=== PATIENT | female | born 1955 | race Caucasian/White ===

== ENCOUNTER → 2016-09-29 | Outpatient (CLI) | payer BC ==
[~2016-09-29] MED LIST: CRANBERRY; MULT1TAB59 PO; OMEG1CAP97 PO; PANT40TA3 PO
== END | disposition home or self-care (01) ==
LOC: LAB 06:26 → EEVIPCON 06:26
PROVIDERS: ATTEND Urology
DX: N39.0 Urinary tract infection, site not specified (principal)
CPT/HCPCS: 87086

== ENCOUNTER 2016-12-01 14:14 | Day surgery (SDC) | payer BC ==
[~2016-12-01] VITALS: Ht 170.2 cm; Wt 76.2 kg
[2016-12-01 14:56] VITALS: Ht 170.2 cm; Wt 76.2 kg
[2016-12-01 15:33] VITALS: BP 129/81; PULSE 73; RESP 16
[2016-12-01] MEDS ORDERED: FENTAnyl 50 MCG/ML VIAL ONE (15:48)
[2016-12-01] MEDS ORDERED: LIDOCAINE 2% (SDV) 5 ML INJ ONE (15:48)
[2016-12-01] MEDS ORDERED: PROPOFOL 20 ML ONE (15:48)
[2016-12-01 17:00] VITALS: BP 120/74; RESP 20
--- NOTE | 2016-12-29 04:33 | GILP ---
DATE OF PROCEDURE: PROCEDURES PERFORMED: 1. Esophagogastroduodenoscopy and biopsy. 2. Colonoscopy and biopsy. SURGEON: Skinny Winter MD. PREOPERATIVE DIAGNOSES: 1. Abdominal pain. 2. Change in bowel habits. POSTOPERATIVE DIAGNOSES: 1. Gastroesophageal reflux disease. 2. Gastritis. 3. Gastric mucosal biopsies were taken for Helicobacter pylori test. 4. Colonoscopy all the way to the cecum. 5. Two small polyps were removed using the biopsy forceps. 6. Internal hemorrhoids. INDICATION FOR PROCEDURE: Mrs. Cassie Rodriges is a 61-year-old female patient who had upper abdominal pain not responding to therapy. The patient also noticed a change in the bowel habits. She has a family history of colon cancer. The patient was scheduled for endoscopy and colonoscopy for further evaluation. The procedures and possible complications were well explained to the patient. She understood and consented to the procedure. DESCRIPTION OF PROCEDURE: Under the influence of anesthesia the gastroscope was carefully introduced into the esophagus and under direct vision it was advanced in the stomach into the pylorus into the duodenal bulb and descending duodenum. Findings esophagus, the patient was noted to have gastroesophageal reflux disease. She also had gastritis. Gastric mucosal biopsies were taken for Helicobacter pylori test. Duodenum was normal. The colonoscope was carefully introduced in the rectum and under direct vision it was advanced all the way to the cecum. Findings, the patient had 2 small colon polyps and they were removed using the biopsy forceps. The patient was noted to have internal hemorrhoids. She tolerated the procedures very well. There was no complications from the procedures. At the end of procedures she was awake with stable vital signs and she was discharged home in the care of her family. IMPRESSION: 1. Gastroesophageal reflux disease. 2. Gastritis. 3. Gastric mucosal biopsies were taken for Helicobacter pylori test. Colonoscopy all the way to the cecum. Two small colon polyps were removed using the biopsy forceps. Internal hemorrhoids. PLAN: 1. Protonix 40 mg p.o. q.a.m. 2. Zantac 300 mg p.o. at bedtime. 3. Await histopathology reports. 4. Next screening colonoscopy in 5 years. Dictated By: MD KELLY Thacker/rojas/bernadette /Document#: [id number] CC: Skinny Winter MD;*[facility]*
== END 2016-12-01 16:48 | disposition home or self-care (01) ==
LOC: GIL 14:14
PROVIDERS: ATTEND Internal Medicine Gastroenterology
DX: R19.4 Change in bowel habit (principal); K21.9 Gastro-esophageal reflux disease without esophagitis; K29.70 Gastritis, unspecified, without bleeding; K63.5 Polyp of colon; K64.8 Other hemorrhoids
CPT/HCPCS: 43239; 45380; J3010

== ENCOUNTER → 2016-12-09 | Outpatient (CLI) | payer BC ==
[~2016-12-09] MED LIST changes: -CRANBERRY
--- NOTE | 2016-12-09 16:26 | RADRPT ---
PROCEDURE: US Abdomen (right upper quadrant). CLINICAL INDICATION: Elevated liver enzymes. TECHNIQUE: Multiple real-time longitudinal and transverse images of the right upper quadrant of th e abdomen were acquired utilizing a curved array transducer. Images were reviewed on a high-resoluti on PACS workstation. COMPARISON: CT scan of the abdomen and pelvis dated 04/25/2014. FINDINGS: The liver is normal in size and normal in echogenicity. There is no focal hepatic lesion. Color Doppler and pulsed Doppler sonography demonstrate normal a ntegrade flow in the portal vein. The gallbladder is surgically absent. The bile ducts are normal with the common bile duct measuring 3.5 mm in diameter. The visualized portions of the pancreas are unremarkable with obscuration of the tail of the pancrea s. No free fluid is present. The right kidney measures 11.6 cm. There is normal echogenicity of the right kidney. There is no perinephric fluid collection. No hydronephrosis, mass, or calculus is seen. IMPRESSION: 1. Status post cholecystectomy. 2. Otherwise normal right upper quadrant abdomen ultrasound. RPTAT: QQ .Devin Rao MD, Date Time Electronically viewed and signed by .Devin Rao MD, MD on 12/09/2016 16:25 .R/
== END | disposition home or self-care (01) ==
LOC: U/S 09:43
PROVIDERS: ATTEND Internal Medicine Gastroenterology
DX: R74.8 Abnormal levels of other serum enzymes (principal)
CPT/HCPCS: 76705

== ENCOUNTER → 2017-03-11 | Outpatient (CLI) | payer BC | END | disposition home or self-care (01) | LOC: LAB 18:47 | PROVIDERS: ATTEND Internal Medicine | DX: N39.0 Urinary tract infection, site not specified (principal) | CPT/HCPCS: 87086 ==

== ENCOUNTER → 2017-05-20 | Outpatient (CLI) | payer BC ==
[2017-05-20 18:51] LABS: ADD UMIC YES; UR ASCORBIC ACID NEGATIVE (NEGATIVE); UR BACTERIA FEW /HPF (NONE SEEN); UR BILIRUBIN (Dip) NEGATIVE (NEGATIVE); UR BLOOD (Dip) NEGATIVE (NEGATIVE); UR CLARITY CLEAR (CLEAR); UR COLOR YELLOW (YELLOW); UR GLUCOSE (Dip) NEGATIVE (NEGATIVE); UR KETONES (Dip) NEGATIVE (NEGATIVE); UR LEUKOCYTE ESTERASE (Dip) TRACE Leu/ul (NEGATIVE); UR NITRITE (Dip) POSITIVE (NEGATIVE); UR RBC 1 /HPF (0-5); UR SPECIFIC GRAVITY (Dip) 1.009 (1.003-1.030); UR TOTAL PROTEIN (Dip) NEGATIVE (NEGATIVE); UR UROBILINOGEN (Dip) NEGATIVE (NEGATIVE)
[2017-05-20 19:05] LABS: ALBUMIN 4.4 g/dl (3.3-4.9); ALBUMIN/GLOBULIN RATIO 1.46; BILIRUBIN,INDIRECT 0.4 mg/dl (0-1.1); BILIRUBIN,TOTAL 0.4 mg/dl (0.2-1.3); CALCIUM 9.4 mg/dl (8.4-10.2); CREATININE 0.9 mg/dl (0.44-1.00); POTASSIUM 3.9 mmol/L (3.5-5.1); TOTAL PROTEIN 7.4 g/dl (6.1-8.1)
== END | disposition home or self-care (01) ==
LOC: LAB 18:27
PROVIDERS: ATTEND Urology
DX: N39.0 Urinary tract infection, site not specified (principal)
CPT/HCPCS: 80053; 81001; 87086

== ENCOUNTER → 2017-05-21 | Outpatient (CLI) | payer BC ==
--- NOTE | 2017-05-21 10:53 | RADRPT ---
PROCEDURE: CT abdomen and pelvis without contrast. CLINICAL INDICATION: Renal calculi. Flank pain. TECHNIQUE: Continues 2.5 mm axial images were obtained from the domes of the diaphragms to the inf erior pubic rami. No oral or intravenous contrast was administered. The calculated dose length prod uct (DLP) = 828.68 mGy-cm. Exam CTDlvol = 14.90 mGy. One or more of the following dose reduction techniques were used: Automated exposure control, adjustment of the mA and or KV according to patien t size, or use of iterative reconstruction technique. One or more of the following dose reduction t echniques were used: Automated exposure control, adjustment of the mA and or KV according to patient size, or use of iterative reconstruction technique. COMPARISON: 04/25/2014 FINDINGS: The lung bases are clear. No pleural pericardial fluid is seen. Gallbladder surgically absent. Liver, pancreas, spleen, and adrenals are within normal limits on thi s noncontrast study. Evaluation of the genitourinary system again demonstrates bilateral nonobstruct ing intrarenal calculi. There is slight interval increase in size of right lower pole calculus; oth erwise the remaining stones are remained stable and unchanged. The dominant stones are as follows: 8.9 mm right lower pole 6.7 mm right lower pole 3.2 mm left upper pole. No associated hydronephrosis or obstructive uropathy is seen. Bilateral ureters are normal in calibe r. No perinephric fluid or stranding is seen. Aorta is normal in caliber. No pathologically enlarged mesenteric lymph nodes are identified. The stomach and small bowel loops are within normal limits. There is no small bowel dilatation or obstruction. No free fluid, free air, abscess in the upper abd omen CT pelvis: Images through the pelvis demonstrate no free fluid, free air, abscess. Bladder is charlie lly distended grossly unremarkable. There are no bladder calculi. Uterus and adnexa are within charlie l limits. Evaluation of the colon demonstrates no diverticulosis, diverticulitis or acute colitis. N ormal appendix is seen. There are no pathologically enlarged iliac chain lymph nodes. No destructive bony lesions are seen. There is stable grade 1 anterior listhesis of L4-L5. There is of left gluteal muscle intramuscular lipoma. IMPRESSION: 1. Bilateral nephrolithiasis. There is no associated obstructive uropathy. Compared to previous exa mination, there is only been slight interval increase in size of a right lower pole calculus. Remain ing stones have remained unchanged. 2. Status post cholecystectomy. 3. Otherwise unremarkable unenhanced CT of the abdomen pelvis RPTAT: HH .Efe Johnson MD, Date Time Electronically viewed and signed by .Efe Johnson MD, on 05/21/2017 10:53 .W/
== END | disposition home or self-care (01) ==
LOC: C/S 07:17
PROVIDERS: ATTEND Urology
DX: N13.2 Hydronephrosis with renal and ureteral calculous obstruction (principal); N20.0 Calculus of kidney; N39.0 Urinary tract infection, site not specified
CPT/HCPCS: 74176

== ENCOUNTER → 2018-05-05 | Outpatient (CLI) | END | disposition home or self-care (01) ==

== ENCOUNTER → 2018-05-06 | Outpatient (CLI) | payer BC | END | disposition home or self-care (01) | LOC: EKG 06:29 | PROVIDERS: ATTEND Internal Medicine | DX: Z00.00 Encounter for general adult medical examination without abnormal findings (principal) ==

== ENCOUNTER → 2018-05-10 | Outpatient (CLI) | END | disposition home or self-care (01) ==

== ENCOUNTER → 2018-05-19 | Outpatient (CLI) | END | disposition home or self-care (01) ==

== ENCOUNTER → 2018-08-04 | Outpatient (CLI) | payer BC ==
--- NOTE | 2018-08-04 14:04 | CONS ---
Assessment/Plan Assessment/Plan Hospital Course (Demo Recall) 61-year-old female who presents with right greater trochanteric bursitis and IT band tendinitis. She also presents with significant lumbar radiculopathy down her entire right lower extremity. Her x-rays are negative for any acute bony abnormality or osteoarthritis. At this time I believe treating her underlying lower back problem will lead to long-term relief of her greater trochanteric bursitis. At this point we will start conservative treatment for greater trochanteric bursitis and IT band tendinitis. I am not recommending an injection at this time as other conservative treatments have not been trialed yet. Patient is going to call her PCP to see if It would be safe for her to take a 4-6-week course of meloxicam. I like her to start with physical therapy. She should continue to use her Voltaren gel. If conservative therapy fails will offer a steroid injection to the right greater trochanteric bursa. Follow-up 12 weeks. 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 Patient states the pain is in the lateral aspect of the hip. The pain does radiate to the knee and foot. It is described as burning at times and as a dull ache. The pain is rated as a 4/10 with activity. Walking tolerance is not limited. No external support. The patient does occasionally admit to a limp. It is difficult to sleep on the affected side at night secondary to pain. There are symptoms to suggest referred pain from the back with radicular symptoms. Lumbar radiculopathy and lumbar spinal stenosis. The pain frequently travels down her entire leg to her foot. Patient has a long history of Treatment to date has activity modification. The patient states that treatment to date has not provided adequate relief of symptoms, prompting consultation. She is unable to take anti-inflammatories as she had a recent elevated LFTs for unknown reason. Duration: 3-4 months Injury: No Walking tolerance: not limited Limp: Yes Support: No Stairs: Uses normally Physical Therapy: No Injections: No NSAID's: Contraindicated Prior surgery: No Back pain: Yes Knee pain: Yes Risk of AVN : No Patient denies fever, chills, shortness of breath, chest pain, nausea/vomiting, constipation, diarrhea, numbness, and tingling. Past Medical History Lumbar stenosis Lumbar radiculopathy Kidney stones Frequent urinary tract infections Elevated LFTs Home Meds Reported Medications Multivitamins* (Multivitamins*) 1 Tab Tablet, 1 TAB PO DAILY 07/31/11 Fish Oil/[place]-3 Fatty Acids (Fish Oil 1,000 Mg Capsule) 1 Cap Capsule, 1 CAP PO DAILY 07/31/11 Pantoprazole* (Protonix*) 40 Mg Tablet.dr, 40 MG PO DAILY 07/31/11 Allergies: Coded Allergies: No Known Drug Allergy (Verified Allergy, Unknown, 03/13/13) Past Surgical History Past Surgical Hx: noncontributory Family History Significant Family History: no pertinent family hx Social History Alcohol Use: rarely (1/week) Smoking Status: Former smoker Drug Use: none Exam/Review of Systems Exam Vitals Weight: 176 pounds Height: 5 foot 6 inches Pulse: 83 Blood Pressure: 145/96 Exam general: Alert, oriented. Vital signs: Noted on the chart. Heart: Regular rate and rhythm. Lungs: No respiratory distress. No accessory muscle use. Musculoskeletal: Well developed female in no apparent distress. Gait demonstrates an antalgic components and no short leg component. Standing, the pelvis is oblique and supine there is no true leg length discrepancy. There is tenderness over trochanteric bursa and IT band. Positive Obers Test Range of motion: Flexion: 120 Extension: 0 Internal rotation: 20 External rotation: 45 Abduction: 60 Adduction: 10 Sitting there is no pelvic obliquity. Minimal to no pain at the extremes of motion of the affected hip. Skin was intact throughout both lower extremities. Sensation intact to light touch in a sural, saphenous, deep peroneal, superficial peroneal, medial and lateral plantar nerve distribution. Neurovascular exam showed 5/5 strength in the abductors, quads, EHL/tibialis anterior/gastroc. Normal and symmetrical pulses were palpated in both the dorsalis pedis and posterior tibial arteries. There is no sign of venous stasis. Imaging Imaging The patient received a full set of films and personally reviewed by myself today in clinic including an AP pelvis and an AP and lateral of the affected hip. The hip is reduced. There is no significant loss of joint space. There is no osteophyte formation. There is no subchondral sclerosis. There are no subchondral cysts. There is no significant deformity of the the proximal femur, femoral neck, or acetabulum. The pelvis is in continuity. Bone quality radiographically: Fair Normal hip x-rays NELSON RAUSCH MD Aug 04, 2018 14:04
--- NOTE | 2018-08-05 08:00 | RADRPT ---
PROCEDURE: XR Right hip and pelvis. CLINICAL INDICATION: Right hip pain and pelvic pain. TECHNIQUE: 3 views. Frontal pelvis. Frontal and lateral right hip. COMPARISON: CT scan of the abdomen and pelvis dated 05/21/2017. FINDINGS: There is no fracture or dislocation. The soft tissues are normal. Articular surfaces are intact. There is no lytic or blastic lesion. There are calculi in the lower right kidney as seen on prior CT scan. IMPRESSION: 1. Calculi in the lower right kidney as seen on prior CT scan. 2. Otherwise unremarkable study. RPTAT: QQ .Devin Rao MD, Date Time Electronically viewed and signed by .Devin Rao MD, on 08/05/2018 07:59 .R/
== END | disposition home or self-care (01) ==
LOC: HKI 09:38
PROVIDERS: ATTEND Orthopaedic Surgery Adult Reconstructive Orthopaedic Surgery
DX: M70.61 Trochanteric bursitis, right hip (principal); M76.31 Iliotibial band syndrome, right leg; M54.16 Radiculopathy, lumbar region
CPT/HCPCS: 73502; G0463

== ENCOUNTER → 2018-10-05 | Outpatient (CLI) | payer BC | END | disposition home or self-care (01) | LOC: LAB 12:36 | PROVIDERS: ATTEND Urology | DX: N39.0 Urinary tract infection, site not specified (principal) | CPT/HCPCS: 81001; 87086 ==

== ENCOUNTER → 2018-10-20 | Outpatient (CLI) | payer BC ==
--- NOTE | 2018-10-20 21:41 | CONS ---
Consult Date/Type/Reason Admit Date/Time Initial Consult Date Date/Time of Note DATE: 10/20/18 TIME: 21:37 Subjective 63-year-old female following up today for right greater trochanteric bursitis and right sciatica. Since she was last seen she had 2 epidural spinal injections. She said the sciatica improved slightly after these injections. The greater trochanteric bursitis continues to be extremely painful. She did not get any relief from physical therapy. 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 The patient would like to try steroid injection today. Patient tried NSAIDs with no relief. Objective Vitals Weight: 176 pounds Height: 5 foot 6 inches Heart Rate: 91 Blood Pressure: 137/88 Exam general: Alert, oriented. Vital signs: Noted on the chart. Heart: Regular rate and rhythm. Lungs: No respiratory distress. No accessory muscle use. Musculoskeletal: Well developed female in no apparent distress. Gait demonstrates an antalgic components and no short leg component. Standing, the pelvis is oblique and supine there is no true leg length discrepancy. There is tenderness over trochanteric bursa and IT band. Positive Obers Test Range of motion: Flexion: 120 Extension: 0 Internal rotation: 20 External rotation: 45 Abduction: 60 Adduction: 10 Sitting there is no pelvic obliquity. Minimal to no pain at the extremes of motion of the affected hip. Skin was intact throughout both lower extremities. Sensation intact to light touch in a sural, saphenous, deep peroneal, superficial peroneal, medial and lateral plantar nerve distribution. Neurovascular exam showed 5/5 strength in the abductors, quads, EHL/tibialis anterior/gastroc. Normal and symmetrical pulses were palpated in both the dorsalis pedis and posterior tibial arteries. There is no sign of venous stasis. Results/Medications Home Meds Reported Medications Multivitamins* (Multivitamins*) 1 Tab Tablet, 1 TAB PO DAILY 07/31/11 Fish Oil/[place]-3 Fatty Acids (Fish Oil 1,000 Mg Capsule) 1 Cap Capsule, 1 CAP PO DAILY 07/31/11 Pantoprazole* (Protonix*) 40 Mg Tablet.dr, 40 MG PO DAILY 07/31/11 Assessment/Plan Hospital Course (Demo Recall) 7-year-old female with severe right greater trochanteric bursitis with underly ing sciatica. Patient is in severe pain she is extremely symptomatic. She has failed conservative treatment. At this time I offered a steroid injection to the right greater trochanteric bursa. I did explain the patient benefits and risks that the number of injections are limited to 3 secondary to risk of tendinosis of the hip abductors. She understood this and wished to proceed with the procedure. I also discussed with her at length that I believe her GT bursitis is secondary to her lumbar radiculopathy/sciatica. Plan: Right GT bursa injection Continue physical therapy Follow-up 12 weeks Assessment/Plan (Daily) Right GT bursa steroid injection procedure: Risks and benefits of steroid injection reviewed with patient. The risks include infection, failure, pain, swelling, nerve/tendon/ligament damage. The patient verbalized understanding and verbal consent was obtained prior to procedure. The right GT bursa was prepped in a sterile fashion with alcohol and betadine the site of injection was confirmed. Lateral approach was used. The skin and subcutaneous tissue was anesthetized with 3mL 1% lidocaine. The right GT bursa was injected with 4mL 1% lidocaine, 4mL 0.25% bupivacaine, 40mg Depo-Medrol. Injection flowed freely. Good hemostasis was achieved and no complications noted. The patient tolerated the procedure well. Limit activity and ice for 24- 48 hours NELSON RAUSCH MD October 20, 2018 21:41
== END | disposition home or self-care (01) ==
LOC: HKI 14:45
PROVIDERS: ATTEND Orthopaedic Surgery Adult Reconstructive Orthopaedic Surgery
DX: M70.61 Trochanteric bursitis, right hip (principal); M54.31 Sciatica, right side
CPT/HCPCS: 20610; G0463

== ENCOUNTER → 2018-12-26 | Outpatient (CLI) | payer BC ==
[~2018-12-26] MED LIST changes: +CYCL5TAB PO; +ESOM40CA PO
== END | disposition home or self-care (01) ==
LOC: LAB 10:17
PROVIDERS: ATTEND Internal Medicine
DX: D68.9 Coagulation defect, unspecified (principal)
CPT/HCPCS: 80053; 81001; 85025; 85610; 85651; 85730

== ENCOUNTER 2019-01-02 05:40 | Inpatient (IN) | payer BC ==
[2018-12-29 17:30] VITALS: BMI 28.1
[2019-01-02] VITALS (9 sets, daily range): BP systolic 119–153; BP diastolic 72–104; PULSE 70–91; RESP 16–18; Ht 170.2 cm; Wt 79.7 kg
[~2019-01-02] VITALS: Ht 170.2 cm; Wt 79.7 kg
[~2019-01-02 05:40] MED LIST changes: +HYDR-4011 PO; -PANT40TA3 PO
[2019-01-02] MEDS ORDERED: CEFAZOLIN 2 GM/50 ML (PMX) 50 ML IVPB ONE (06:00)
--- NOTE | 2019-01-02 06:47 | PREAC ---
Date/Time of Note Date/Time of Note DATE: 01/02/19 TIME: 06:36 Anesthesia Eval and Record Evaluation Time Pre-Procedure Interview DATE: 01/02/19 TIME: 06:36 Age 63 Sex female NPO: 8 hrs Preoperative diagnosis L3, L4 spinal stenosis Planned procedure L3,4Decompression laminectomy Past Medical History Past Medical History: Includes Renal: Other (Kidney stone) GI: GERD Surgery & Anesthesia Issues No known issue Meds Anticoagulation: No Beta Alice within 24 hr: No Reason Beta Alice not given: Pt. not on B-Alice Reported Medications Esomeprazole Mag Trihydrate (Nexium) 40 Mg Capsule.dr, 40 MG PO DAILY, #30 CAP 12/29/18 Cyclobenzaprine Hcl* (Cyclobenzaprine Hcl*) 5 Mg Tablet, 5 MG PO QHS, #90 TAB 12/29/18 Multivitamins* (Multivitamins*) 1 Tab Tablet, 1 TAB PO DAILY 07/31/11 Fish Oil/[place]-3 Fatty Acids (Fish Oil 1,000 Mg Capsule) 1 Cap Capsule, 1 CAP PO DAILY 07/31/11 Discontinued Reported Medications Pantoprazole* (Protonix*) 40 Mg Tablet.dr, 40 MG PO DAILY 07/31/11 Meds reviewed: Yes Allergies Coded Allergies: No Known Drug Allergy (Verified Allergy, Unknown, 03/13/13) Allergies Reviewed: Yes Labs/Studies Labs Reviewed: Reviewed by anesthesiologist test: N/A Pre-procedure Exam Airway: Adequate mouth opening Mallampati: Mallampati I Teeth: Normal Lung: Normal Heart: Normal ASA Physical Status ASA physical status: 2 Emergency: None Planned Anesthetic General/MAC: ETT Planned Pain Management Parenteral pain med Pre-operative Attestations Prior to commencing anesthesia and surgery, the patient was re-evaluated, there was verification of: *The patient's identity *The results of appropriate recent lab work and preoperative vital signs *The above evaluation not changing prior to induction *Anesthetic plan, risk benefits, alternative and complications discussed with patient/family; questions answered; patient/family understands, accepts and wishes to proceed. VIK VILLANUEVA MD Jan 02, 2019 06:46
--- NOTE | 2019-01-02 06:55 | HPN ---
Date/Time of Note Date/Time of Note DATE: 01/02/19 TIME: 06:55 Interval H&P Admission Note Pt. seen H&P reviewed: No system changes ARLEN OSEI MD Jan 02, 2019 06:55
[2019-01-02] MEDS ORDERED: MEPERIDINE 100 MG INJ ONE (06:59)
[2019-01-02] MEDS ORDERED: LIDOCAINE 2% (SDV) 5 ML INJ ONE (06:59)
[2019-01-02] MEDS ORDERED: PROPOFOL 20 ML ONE (06:59)
[2019-01-02] MEDS ORDERED: ROCURONIUM 50 MG INJ ONE ×2 (06:59→07:47)
[2019-01-02] MEDS ORDERED: SUCCINYLCHOLINE CHLORIDE 100 MG/5 ML SYG IV ONE (06:59)
[2019-01-02] MEDS ORDERED: GLYCOPYRROLATE 0.4 MG INJ ONE ×2 (06:59→07:47)
[2019-01-02] MEDS ORDERED: NEOSTIGMINE 3 MG/3 ML SYRINGE ONE ×2 (06:59→07:47)
[2019-01-02] MEDS ORDERED: BUPIVACAINE 0.25% (MPF) 30 ML INJ ONE (07:06)
[2019-01-02] MEDS ORDERED: GELATIN SIZE 100 SPONGE ONE (07:06)
[2019-01-02] MEDS ORDERED: THROMBIN 20,000 UNIT VIAL ONE (07:07)
[2019-01-02] MEDS ORDERED: LACTATED RINGER'S 1,000 ML IV SCH ×2 (07:30)
[2019-01-02] MEDS ORDERED: EPHEDrine 25 MG/5 ML SYG ONE (08:06)
[2019-01-02] MEDS ORDERED: POLYMYXIN/BACITRACIN 1L IRRIG IRR ONE (08:06)
[2019-01-02] MEDS ORDERED: ONDANSETRON 4 MG INJ ONE (08:15)
[2019-01-02] MEDS ORDERED: METOCLOPRAMIDE 10 MG INJ ONE (08:15)
[2019-01-02] MEDS ORDERED: MIDAZOLAM 1 MG/ML 2 ML INJ IV PRN (09:30)
[2019-01-02] MEDS ORDERED: LABETALOL HCL 20MG INJ IV PRN (09:30)
[2019-01-02] MEDS ORDERED: hydrALAzine 20 MG INJ IV PRN (09:30)
[2019-01-02] MEDS ORDERED: FENTAnyl 50 MCG/ML VIAL IV PRN ×2 (09:30)
[2019-01-02] MEDS ORDERED: DIPHENHYDRAMINE 50 MG INJ IV PRN (09:30)
[2019-01-02] MEDS ORDERED: METOCLOPRAMIDE 10 MG INJ IV PRN (09:30)
[2019-01-02] MEDS ORDERED: ONDANSETRON 4 MG INJ IV PRN (09:30)
[2019-01-02] MEDS ORDERED: MEPERIDINE 25 MG INJ IV PRN (09:30)
[2019-01-02] MEDS ORDERED: HYDROmorphONE 1 MG/5 ML IV SYRINGE IV PRN ×3 (09:30)
[2019-01-02] MEDS ORDERED: EPHEDrine 25 MG/5 ML SYG IV PRN (09:30)
--- NOTE | 2019-01-02 10:19 | SIPON ---
Date/Time of Note Date/Time of Note DATE: 01/02/19 TIME: 10:17 Operative Report Preoperative Diagnosis Spinal Stenosis L3 and L4 Postoperative Diagnosis same Operation/Procedure Performed Central decompressive laminectomy at L3 Central decompressive laminectomy at L4 Medial facetectomy and foraminotomy L3-4 and L4-5 bilaterally Cosmetic wound closure (6 cm) Lateral localizing lumbar radiographs (2) Intraoperative nerve monitoring (2 hours) Surgeon see signature line kitchen assistant JONAH Thompson Anesthesia: general Estimated blood loss: 10 - 50 ml's Transfusion Required none Specimen Spinous processes of L3 and L4 Grafts/Implants none Complications none ARLEN OSEI MD Jan 02, 2019 10:19
[2019-01-02] MEDS ORDERED: NACL 0.9% 3 ML SYG IV SCH (10:30)
[2019-01-02] MEDS ORDERED: CEPASTAT LOZENGE MT PRN (10:30)
[2019-01-02] MEDS ORDERED: DIPHENHYDRAMINE 50 MG CAP PO PRN (10:30)
[2019-01-02] MEDS ORDERED: NALOXONE (0.4 MG/ML) INJ IV PRN (10:30)
[2019-01-02] MEDS ORDERED: HYDROmorphONE 0.2 MG/ML PCA IV SCH (10:30)
[2019-01-02] MEDS ORDERED: DIAZEPAM 5 MG/ML SYG IM PRN (10:30)
[2019-01-02] MEDS ORDERED: AL HYDROX/MG HYDROX/SIMETH 30 ML CUP PO PRN (10:30)
[2019-01-02] MEDS ORDERED: PROCHLORPERAZINE 10 MG TAB PO PRN (10:30)
[2019-01-02] MEDS ORDERED: TRIMETHOBENZAMIDE 100 MG/ML VIAL IM PRN (10:30)
[2019-01-02] MEDS ORDERED: ZOLPIDEM 5 MG TAB PO PRN (10:30)
[2019-01-02] MEDS ORDERED: BETHANECHOL 25 MG TAB PO PRN (10:30)
[2019-01-02] MEDS ORDERED: DIAZEPAM 5 MG TAB PO PRN (10:30)
[2019-01-02] MEDS ORDERED: HYDROCODONE/APAP (5/325) TAB PO PRN ×2 (10:30)
[2019-01-02] MEDS ORDERED: ACETAMINOPHEN 325 MG TAB PO PRN (10:30)
[2019-01-02] MEDS: FENTAnyl 50 MCG/ML VIAL IV PRN ×2 (10:33→10:59)
[2019-01-02] MEDS: CEFAZOLIN 1 GM/50 ML (PMX) 50 ML IVPB SCH ×3 (11:58→23:46)
[2019-01-02] MEDS: DEXTROSE 5%-0.45% NACL 1,000 ML IV SCH ×2 (13:55→20:14)
--- NOTE | 2019-01-02 14:05 | OPR ---
DATE OF OPERATION: 01/02/2019 PREOPERATIVE DIAGNOSIS: Severe lumbar spinal stenosis at L3 and L4. POSTOPERATIVE DIAGNOSIS: Severe lumbar spinal stenosis at L3 and L4. OPERATION PERFORMED: 1. Central decompressive laminectomy at L3. 2. Central decompressive laminectomy at L4. 3. Medial facetectomy and foraminotomy L3-4 and L4-5 bilaterally. 4. Cosmetic wound closure (6 cm). 5. Lateral localized lumbar radiographs (2). 6. Intraoperative nerve monitoring (2 hours). SURGEON: Manuel Mclaughlin MD DOCK BOSS: JONAH Thompson ANESTHESIA: General endotracheal. ANESTHESIOLOGIST: Darren Smith MD ESTIMATED BLOOD LOSS: 50 mL, none replaced. DRAINS: Two medium Hemovac drains employed. COMPLICATIONS: None. PERTINENT HISTORY AND PHYSICAL: This is a 63-year-old female with severe back and bilateral leg pain , right greater than left, which have been unrelieved by conservative management. She has undergone a number of diagnostic studies including MRI of the lumbar spine, which demonstrated severe stenosis at L4-L5 and moderately severe stenosis at L3-L4. Treatment options discussed with the patient, she elected to proceed with surgery. OPERATIVE FINDINGS AT SURGERY: A moderately severe stenosis at L3 and severe stenosis at L4 was conf irmed. The baseline intraoperative nerve monitoring revealed a decrease in the L3 potential on the r ight of 30%, the L4 potential on the right of 30%. These all returned to normal at the completion of surgery. OPERATIVE PROCEDURE: With the patient in supine position after satisfactory induction of general end otracheal anesthesia by Dr. Obed Smith, the patient was turned to the prone kneeling position on the [facility] frame. All pressure points were carefully padded. Back was prepped and draped in usual ster ile fashion. Athrombic pumps were applied to legs below the knees to prevent venous stasis during an d after procedure. The back was prepped and draped in usual sterile fashion. Two spinal needles erica elizabeth next to what was felt to be the L3 and L4 spinous processes, lateral anchors taken which confirme d anatomic localization. A 6 cm incision then carried midline over the spinous process of L3 and L4 after skin was infiltrated with 0.25% Marcaine without epinephrine for postoperative analgesia. Supe rficial retractors were placed and hemostasis secured with electrocautery. Throughout the procedure, copious amounts of antibacterial irrigating solution used to periodically irrigate the wound. The f ascia was incised in the midline with a hot knife and a bilateral subperiosteal dissection carried ou t at L3 and L4. Deep retractors were placed and deep hemostasis secured with electrocautery. A seco nd intraoperative radiograph was taken with Chencho clamps placed in what was felt to be the spinous p rocess of L3 and L4 and this was confirmed with second x-ray. A central decompressive laminectomy at L3 and L4 was then carried out using a Sarah right-angle bone rongeur, Leksell rongeur, Kerrison p unches and curettes. Ligamentum flavum was excised with sharp dissection. The operating microscope was then moved into place. A medial facetectomy and foraminotomy was accomplished at L3-L4 and L4-L5 bilaterally using small hand osteotome, mallet, Kerrison punches and curettes. The anesthesiologist was asked to perform a Valsalva maneuver at 40 mmHg and no spinal fluid leak was noted. The epidura l hemostasis was secured with bipolar electrocautery on low setting. The wound was then closed in la yers over 2 medium Hemovac drains, one below the fascia, one above the fascia using #1 Stratafix sutu re in deep parallel musculature and deep fascia of back, 2-0 Stratafix sutures in subcu tissue, and a 4-0 Vicryl subcuticular cosmetic closing suture on the skin. Dermabond and sterile compressive dres sings were applied. Patient tolerated the procedure well, was then turned to the supine position ont o her bed and extubated by Dr. Obed Smith. She was transported to the recovery room in [facility] c ondition. At the conclusion of procedure, sponge, instrument, and needle counts were all correct. NEED FOR NOZZLE OPERATOR: During this spinal surgical procedure, my licensed loan officer assistant was used to retract and protect the spinal nerves and dural sac. My licensed loan officer assistant also employed the suction catheters to john cady blood from the surgical field to improve visualization of the neural structures. The licensed loan officer assistant was medically necessary to facilitate the completion of the surgery in a safe and expeditious manner. State of [place] regulations, as well as hospital bylaws, preclude the use of non-licensed health care personnel such as operating room technicians, to perform these functions. Throughout the procedure, neural monitoring was carried out by [employer] including EMG, SSEP a nd MEP monitoring of the L3, L4, L5 and S1 nerve roots bilaterally along with spinal cord potentials. These were interpreted in real time by Dr. Kevan Gray. Dictated By: MANUEL MCLAUGHLIN MD TM/NTS Conf#: [id number] DID#: [id number] CC: MAN FROST MD;*EndCC*
--- NOTE | 2019-01-02 14:44 | CONS ---
DATE OF ADMISSION: 01/02/2019 DATE OF CONSULTATION: 01/02/2019 TYPE OF CONSULTATION: Medical. REQUESTING PHYSICIAN: Thank you, Dr. Osei, for asking me to participate in the medical managemen t of this patient. REASON FOR CONSULTATION: Elevated blood pressure, history of urinary tract infections, history of ki dney stones. HISTORY OF PRESENT ILLNESS: This 63-year-old female is now postop a lumbar spine surgery today by Dr Kyung Osei. The patient was having right sciatic nerve pain radiating down her leg to her right foot . She was diagnosed as having spinal stenosis at the L3 and L4 levels. She underwent a central deco mpressive laminectomy at L3 and at L4 with medial facetectomy and foraminotomy at the L3-L4 level and L4-L5 level bilaterally. She is now postop and is in her room on the ortho floor. She is awake and alert. She is having some mild burning type pain at the incision site, but otherwise seems comforta ble and is being medicated. Her blood pressure preoperatively was elevated at 153/104. The patient' s blood pressure now is 136/83. She does not have a history of hypertension. She does have a histor y of recurrent urinary tract infections and kidney stones. PAST MEDICAL HISTORY: Other past medical history have included external hemorrhoids, gastroesophagea l reflux disease, osteopenia, transaminitis. PAST SURGICAL HISTORY: Colonoscopy and EGD, laparoscopic cholecystectomy, history of lithotripsy of kidney stone. SOCIAL HISTORY: She is . She has never smoked. She drinks alcohol socially. CURRENT MEDICATIONS: 1. Flexeril 5 mg 3 times a day. 2. Temazepam 15 mg for sleep. 3. Cranberry capsules. 4. Tramadol 5. Multivitamins. ALLERGIES: SHE HAS NO KNOWN DRUG ALLERGIES. PHYSICAL EXAMINATION: GENERAL: At this time, reveals a well-developed female in no apparent distress. VITAL SIGNS: She is afebrile, blood pressure 136/86 with pulse of 72 irregular, respirations 15. HEAD: Normocephalic. EYES: Extraocular muscles intact. NOSE AND MOUTH: Normal. NECK: Supple. No neck vein distention. LUNGS: Clear to auscultation. HEART: Regular rhythm. No murmurs, gallops or rubs. ABDOMEN: Soft, nontender, no masses or megaly. EXTREMITIES: No peripheral edema. IMPRESSION: This patient is doing well after surgery today. She is awake and alert. Her pain is un orville control and she seems comfortable. She denies chest pain or shortness of breath. Her blood pres sure was elevated earlier, but is normal now. I will manage the patient's blood pressure, urinary tr act infections, kidney stones. PLAN: 1. Resume some routine medications. 2. Check labs in the morning. 3. Postop lumbar spine surgery protocol. 4. I will follow the patient along with you. Dictated By: MAN FROST MD ND/NTS Conf#: [id number] DID#: [id number] CC: ARLEN OSEI MD;*End*
[2019-01-02] MEDS: RANITIDINE 150 MG TAB PO SCH (21:17)
[2019-01-02] MEDS: ONDANSETRON 4 MG INJ IV PRN (23:45)
[2019-01-03] VITALS: BP 112/65; PULSE 80
[2019-01-03 04:00] VITALS: BP 136/80; PULSE 80; RESP 16
[2019-01-03] MEDS: CEFAZOLIN 1 GM/50 ML (PMX) 50 ML IVPB SCH (05:53)
[2019-01-03] MEDS: DEXTROSE 5%-0.45% NACL 1,000 ML IV SCH (06:14)
--- NOTE | 2019-01-03 06:53 | PN ---
Date/Time of Note Date/Time of Note DATE: 01/03/19 TIME: 06:52 Assessment/Plan Lines/Catheters IV C[facility]ter Type ([facility] Saline Lock Subjective 24 Hr Interval Summary The patient is postop day #1 following a decompressive laminectomy at L3 and L4. She is resting comfortably in bed. Neurovascular structures are intact distally. Her temperature is 99.4. A.m. lab work is unremarkable. She will be mobilized as tolerated by physical therapy. Her Hemovac has 160 cc of blood si nce surgery. I will recheck it at 11:30 AM. Exam/Review of Systems Vital Signs Vitals Vital Signs Date Temp Pulse Resp B/P (MAP) Pulse Ox O2 O2 Flow FiO2 Time Delivery Rate 01/03/19 99.4 80 16 136/80 98 Room Air 04:00 (98) 01/02/19 2.0 14:35 Intake and Output 01/02/19 01/02/19 01/03/19 1515:00 23:00 07:00 IntakeIntake Total 1250 ml 1490 ml 50 ml OutputOutput Total 110 ml 45 ml 85 ml BalanceBalance 1140 ml 1445 ml -35 ml Results Result Diagram: 01/03/19 0454 01/03/19 0454 ARLEN OSEI MD Jan 03, 2019 06:53
[2019-01-03 07:28] VITALS: BP 115/77; PULSE 72; RESP 19
[2019-01-03] MEDS: ONDANSETRON 4 MG INJ IV PRN (07:33)
[2019-01-03] MEDS ORDERED: BETHANECHOL 25 MG TAB PO PRN (08:00)
[2019-01-03] MEDS ORDERED: HYDROCODONE/APAP (5/325) TAB PO PRN (08:30)
--- NOTE | 2019-01-03 08:44 | CONS ---
Assessment/Plan Assessment/Plan Hospital Course (Demo Recall) 1. Cassie is 1 day postop a lumbar spine surgery. She is awake and alert. She has some incisional pain but seems otherwise comfortable. Her vital signs and laboratory tests are acceptable. She has been afebrile. She denies cough or dysuria. 2. She will continue physical therapy as tolerated. Consultation Date/Type/Reason Admit Date/Time Jan 02, 2019 at 05:40 Initial Consult Date Date/Time of Note DATE: 01/03/19 TIME: 08:41 24 HR Interval Summary Free Text/Dictation Cassie is now 1 day postop a lumbar spine surgery. She is sitting up in a chair. She is awake and alert. She has some incisional back pain but is otherwise comfortable. Constitutional: no complaints, improved Exam/Review of Systems Exam Vitals Vital Signs Date Temp Pulse Resp B/P (MAP) Pulse Ox O2 O2 Flow FiO2 Time Delivery Rate 01/03/19 99.7 72 19 115/77 97 07:28 (90) 01/03/19 Room Air 04:00 01/02/19 2.0 14:35 Intake and Output 01/02/19 01/02/19 01/03/19 1515:00 23:00 07:00 IntakeIntake Total 1250 ml 1490 ml 600 ml OutputOutput Total 110 ml 45 ml 85 ml BalanceBalance 1140 ml 1445 ml 515 ml Constitutional: alert, oriented, well developed Respiratory: clear to auscultation, normal air movement Cardiovascular: regular rate and rhythm Gastrointestinal: soft, non-tender Musculoskeletal: nl extremities to inspection Results Result Diagram: 01/03/19 0454 01/03/19 0454 Results 24hrs Laboratory Tests Test 01/03/19 04:54 01/03/19 07:59 Hemoglobin 13.4 Hematocrit 39.7 Sodium Level 140 Potassium Level 3.8 Chloride Level 102 Carbon Dioxide Level 28 Anion Gap 10 Blood Urea Nitrogen 8 Creatinine 0.56 Est Glomerular Filtrat Rate mL/min > 60 Glucose Level 112 Calcium Level 9.2 Lab Scanned Report REFERENCE LAB Medications Medication Current Medications Lactated Ringer's 1,000 ml @ 25 mls/hr Q24H IV Last administered on 01/02/19at 10:07; Admin Dose 25 MLS/HR; Start 01/02/19 at 07:30; Stop 01/03/19 at 23:29 Lactated Ringer's 1,000 ml @ 25 mls/hr Q24H IV Last administered on 01/02/19at 10:09; Admin Dose 25 MLS/HR; Start 01/02/19 at 07:30; Stop 01/03/19 at 23:29 Dextrose/Sodium Chloride 1,000 ml @ 100 mls/hr Q10H IV Last administered on 01/02/19at 13:55; Admin Dose 100 MLS/HR; Start 01/02/19 at 10:14 Zolpidem Tartrate (Ambien) 5 mg HS PRN PO .INSOMNIA; Start 01/02/19 at 10:30 Prochlorperazine (Compazine) 10 mg Q4H PRN PO NAUSEA/VOMITING; Start 01/02/19 at 10:30 Trimethobenzamide HCl (Tigan) 200 mg Q4H PRN IM NAUSEA/VOMITING; Start 01/02/19 at 10:30 Ondansetron HCl (Zofran Inj) 4 mg Q6H PRN IV NAUSEA/VOMITING Last administered on 01/03/19at 07:33; Admin Dose 4 MG; Start 01/02/19 at 10:30 Al Hydrox/Mg Hydrox/Simethicone (Mag-Al Plus) 15 ml Q4H PRN PO .CONSTIPATION; Start 01/02/19 at 10:30 Docusate Sodium (Colace) 100 mg BID PO ; Start 01/03/19 at 09:00 Acetaminophen (Tylenol Tab) 650 mg Q4H PRN PO TEMP GREATER THAN 101F OR MULLINS; Start 01/02/19 at 10:30 Ascorbic Acid (Vitamin C) 1,000 mg BID PO ; Start 01/03/19 at 09:00 Ferrous Sulfate (Ferrous Sulfate (Ec)) 325 mg TID PO ; Start 01/03/19 at 09:00 Ranitidine HCl (Zantac) 150 mg BID PO Last administered on 01/02/19at 21:17; Admin Dose 150 MG; Start 01/02/19 at 21:00 Diazepam (Valium) 5 mg Q4H PRN PO .MUSCLE SPASM; Start 01/02/19 at 10:30 Diazepam (Valium) 5 mg Q4H PRN IM .MUSCLE SPASM; Start 01/02/19 at 10:30 Phenol (Cepastat Lozenge) 1 lozenge PRN PRN MT .SORE THROAT; Start 01/02/19 at 10:30 Bethanechol Chloride (Urecholine) 25 mg PRN PRN PO .UNABLE TO VOID; Start 01/02/19 at 10:30 Diphenhydramine HCl (Benadryl) 50 mg Q6H PRN PO .PRURITUS Last administered on 01/02/19at 23:46; Admin Dose 50 MG; Start 01/02/19 at 10:30 IV Flush (NS 3 ml) 3 ml PER PROTOCOL IV ; Start 01/02/19 at 10:30 Naloxone HCl (Narcan) 0.2 mg Q2M PRN IV RR 8 BREATHS/MIN OR LESS; Start 01/02/19 at 10:30 Bethanechol Chloride (Urecholine) 25 mg PRN PRN PO UNABLE TO VOID; Start 01/03/19 at 08:00 Acetaminophen/ Hydrocodone Bitart ([place] (5/325)) 1 tab Q4H PRN PO PAIN LEVEL 1-5; Start 01/03/19 at 08:30 Acetaminophen/ Hydrocodone Bitart ([place] (5/325)) 2 tab Q4H PRN PO PAIN LEVEL 6-10; Start 01/03/19 at 08:30 MAN FROST MD Jan 03, 2019 08:44
[2019-01-03] MEDS ORDERED: DOCUSATE SODIUM 100 MG CAP PO SCH (09:00)
[2019-01-03] MEDS ORDERED: ASCORBIC ACID 500 MG TAB PO SCH (09:00)
[2019-01-03] MEDS: FERROUS SULFATE (EC) 325 MG TAB PO SCH ×2 (10:02→16:37)
[2019-01-03] MEDS: RANITIDINE 150 MG TAB PO SCH (10:02)
[2019-01-03] MEDS: HYDROCODONE/APAP (5/325) TAB PO PRN ×2 (10:03→16:37)
--- NOTE | 2019-01-03 18:15 | PN ---
Date/Time of Note Date/Time of Note DATE: 01/03/19 TIME: 18:14 Assessment/Plan Lines/Catheters IV Catheter Type (from Nrs): Saline Lock Subjective 24 Hr Interval Summary Patient has been cleared by physical therapy for discharge. There is minimal drainage in her Hemovac. Her Hemovac has been discontinued, and her wound is clean and dry. It was redressed. I have discharged her, and given her strict discharge precautions and instructions as well as follow-up arrangements. Exam/Review of Systems Vital Signs Vitals Vital Signs Date Temp Pulse Resp B/P (MAP) Pulse Ox O2 O2 Flow FiO2 Time Delivery Rate 01/03/19 99.7 72 19 115/77 97 07:28 (90) 01/03/19 Room Air 04:00 01/02/19 2.0 14:35 Intake and Output 01/02/19 01/02/19 01/03/19 1515:00 23:00 07:00 IntakeIntake Total 1250 ml 1490 ml 600 ml OutputOutput Total 110 ml 45 ml 85 ml BalanceBalance 1140 ml 1445 ml 515 ml Results Result Diagram: 01/03/19 0454 01/03/19 0454 ARLEN OSEI MD Jan 03, 2019 18:15
--- NOTE | 2019-01-04 02:35 | DS ---
DATE OF ADMISSION: 01/02/2019 DATE OF DISCHARGE: 01/03/2019 ADMISSION AND DISCHARGE DIAGNOSIS: Lumbar spinal stenosis at L3 and L4. OPERATIONS AND PROCEDURES: On 01/02/2019 the patient underwent the followin. Central decompressive laminectomy at L3. 2. Central decompressive laminectomy at L4. 3. Medial facetectomy and foraminotomy, L3-L4 and L4-L5 bilaterally. 4. Cosmetic wound closure (6 cm). 5. Intraoperative nerve monitoring. 6. Lateral localized lumbar radiographs (2). PERTINENT HISTORY AND PHYSICAL: This is a 63-year-old female with severe back and bilateral leg pain , right greater than left, which has been unrelieved by conservative management. She has undergone a number of diagnostic studies including an MRI of the lumbar spine, which demonstrated lumbar spinal stenosis at L3 (moderate) and L4 (severe). Treatment options discussed with the patient, she elected to proceed with surgery. HOSPITAL COURSE: The patient admitted on 01/02/2019 and after routine laboratory admission studies w hich were essentially within normal limits, the patient was scheduled for the operative procedure enoch cribed previously. She tolerated the procedure well and recovered uneventfully. She was given [facility] inpatient physical therapy for walker ambulation training until she was independent without assi stance. She was discharged on 01/03/2019 with marked improvement in preop symptomatology. She was g iven instructions for followup in my office in 1 to 2 weeks. She was given strict discharge precauti ons and instructions made sedentary except for walking a mile a day in divided increments. She is al so to take her temperature twice daily and report any fever over 100 degrees Fahrenheit, chills, swea ts or drainage from her wound. She was given back instruction sheets for information. DISCHARGE MEDICATIONS: Include [place] 5/325 #50, one to 2 q.4 hours p.r.n. pain. Dictated By: ARLEN OSEI MD TM/NTS Conf#: [id number] DID#: [id number] CC: MAN FROST MD;*EndCC*
--- NOTE | 2019-01-09 09:33 | PAC ---
Date/Time of Note Date/Time of Note DATE: 01/09/19 TIME: 09:33 Post-Anesthesia Notes Post-Anesthesia Note Activity: WNL Respiratory function: WNL Cardiovascular function: WNL Mental status: Baseline Pain reasonably controlled: Yes Hydration appropriate: Yes Nausea/Vomiting absent: Yes Comments BT: 99.7, BP: 115/77, HR:72, RR: 19, SpO2:97 VIK VILLANUEVA MD Jan 09, 2019 09:33
== END 2019-01-03 18:45 | disposition home or self-care (01) | DRG 517 ==
LOC: REC 05:40 → MS1 11:36
PROVIDERS: ADMIT Orthopaedic Surgery; ATTEND Orthopaedic Surgery
PROC: 01NB0ZZ Release Lumbar Nerve, Open Approach (ICD-10-PCS; principal; 2019-01-02 07:00)
DX: M48.061 Spinal stenosis, lumbar region without neurogenic claudication (principal)
CPT/HCPCS: 72020; 80048; 81001; 85014; 85018; 86703; 86803; 86850; 86900; 86901; 86920; 87340; 88304; 97110; 97116; 97161; J0690; J1170; J2175; J2405; J2710; J2765; J3010; J3250; J7042; J7120